=== PATIENT | female | born 1955 | race Caucasian/White ===

== ENCOUNTER 2016-11-16 11:56 | Emergency (ER) | payer OTHER ==
[~2016-11-16] VITALS: Ht 160 cm; Wt 76.0 kg
[~2016-11-16 11:56] MED LIST: BUPR-197
[2016-11-16 12:03] VITALS: BP 130/85; PULSE 87; RESP 18; TEMP 98.8; O2SAT 96
[2016-11-16] MEDS ORDERED: VENL75TA PO (12:29)
[2016-11-16] MEDS ORDERED: CHLO5CAP37 PO (12:29)
[2016-11-16] MEDS ORDERED: UREA1CRE TOP (12:29)
[2016-11-16] MEDS ORDERED: FLOR250C PO (12:29)
[2016-11-16] MEDS ORDERED: CLON1TAB PO (12:29)
[2016-11-16] MEDS ORDERED: ASPI1TAB69 PO (12:29)
[2016-11-16] MEDS ORDERED: LEVO50TA4 PO (12:29)
[2016-11-16] MEDS ORDERED: HYDR25TA5 PO (12:29)
[2016-11-16] MEDS ORDERED: OMEP20TA PO (12:29)
[2016-11-16] MEDS ORDERED: PHEN37.54 PO (12:29)
[2016-11-16] MEDS ORDERED: FLUO1TAB3 PO (12:29)
[2016-11-16] MEDS ORDERED: GLIP1TAB49 PO (12:29)
[2016-11-16] MEDS ORDERED: OSPE1TAB PO (12:29)
[2016-11-16] MEDS ORDERED: LISI2.5T3 PO (12:29)
[2016-11-16] MEDS ORDERED: BENZ1CAP8 PO (12:29)
[2016-11-16] MEDS ORDERED: PRAV40TA2 PO (12:29)
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
[2016-11-16] MEDS ORDERED: PROPOFOL 200 MG/20 ML AMP IV ONE (14:15)
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
[2016-11-16] MEDS ORDERED: NAPR500T PO (14:31)
[2016-11-16] MEDS ORDERED: ROBA500T PO (14:31)
[2016-11-16] MEDS ORDERED: HYDR-3533 PO (14:31)
== END 2016-11-16 14:48 | disposition home or self-care (01) ==
LOC: PHEFT 11:56
DX: S16.1XXA Strain of muscle, fascia and tendon at neck level, initial encounter (principal); M54.5 Low back pain; E78.00 Pure hypercholesterolemia, unspecified; E11.9 Type 2 diabetes mellitus without complications; I10 Essential (primary) hypertension; F17.210 Nicotine dependence, cigarettes, uncomplicated; V49.49XA Driver injured in collision with other motor vehicles in traffic accident, initial encounter
CPT/HCPCS: 70450; 72125